=== PATIENT | female | born 1990 | race African-American/Black ===

== ENCOUNTER 2022-08-31 12:13 | Outpatient (CLI) | payer OTHER, SELFPAY ==
[2022-08-31 13:31] LABS: HIV 1/2 Ab P24 Ag Result Negative (Negative)
[2022-08-31 13:40] LABS: Hepatitis B Surface Antigen Negative (Negative)
[2022-08-31 13:57] LABS: Hepatitis C Virus Antibody Negative (Negative)
[2022-09-01 13:18] LABS: Rapid Plasma Reagin Non-Reactive (NonReactive)
[2022-09-09 09:36] LABS: HSV 1 IgM Screen Negative (Negative); HSV 2 IgM Screen Negative (Negative)
== END 2022-08-31 12:14 | disposition home or self-care (01) ==
LOC: ANHLAB 12:16
PROVIDERS: Visit Provider Registered Nurse
DX: Z11.3 Encounter for screening for infections with a predominantly sexual mode of transmission (principal)
CPT/HCPCS: 36415; 86592; 86695; 86696; 86703; 86803; 87340; G0432